=== PATIENT | male | born 1980 | race American Indian/Alaskan Native ===

== ENCOUNTER 2017-02-18 10:19 | Outpatient (CLI) | payer OTHER ==
[2017-02-18] MEDS ORDERED: NACL ONE (10:39)
--- NOTE | 2017-02-18 11:06 | Cat Scan Report ---
CT scan of head without contrast: History: Migraines. Findings: Ventricles are normal in size and midline in location. No evidence of acute ischemia, hemorrhage or mass. No extra axial fluid collection. Normal brainstem and cerebellum. Normal sinuses and mastoid air cells. Impression: No acute intracranial abnormality.
== END 2017-02-18 10:20 | disposition home or self-care (01) ==
LOC: CT 10:19
DX: G43.909 Migraine, unspecified, not intractable, without status migrainosus (principal)
CPT/HCPCS: 70470; Q9967

== ENCOUNTER 2018-04-27 08:25 | Emergency (ER) | payer SELFPAY ==
[2018-04-27 09:15] VITALS: BP 142/82
== END 2018-04-27 11:10 | disposition left against medical advice (07) ==
LOC: EDBD → ED 08:25
DX: T65.91XA Toxic effect of unspecified substance, accidental (unintentional), initial encounter (principal); Z53.21 Procedure and treatment not carried out due to patient leaving prior to being seen by health care provider